=== PATIENT | female | born 1960 | race Caucasian/White ===

== ENCOUNTER 2017-02-06 08:14 | Observation (INO) ==
[2017-02-06] MEDS ORDERED: Ondansetron 4 MG/2 ML VIAL ONE (08:16)
[2017-02-06] MEDS ORDERED: *HR* Propofol 200 MG/20 ML VIAL IVP ONE (08:16)
[2017-02-06] MEDS ORDERED: *HR* Midazolam HCl 2 MG/2 ML VIAL ONE (08:16)
[2017-02-06] MEDS ORDERED: *HR* FentaNYL (PF) 100 MCG/2 ML VIAL ONE (08:16)
[2017-02-06] MEDS ORDERED: Lidocaine -MPF 2% 2 ML VIAL ONE ×2 (08:16→08:18)
[2017-02-06] MEDS ORDERED: Dexamethasone 4 MG/ML VIAL ONE (08:16)
--- NOTE | 2017-02-06 09:22 | Anesthesia Evaluation PreOp ---
Date of Encounter: 02/06/17 Time of Encounter: 09:21 - Past History Planned Operation: excision of volar wrist ganglion cyst on R Cardiac History: HTN, Hyperlipidemia Pulmonary History: Asthma ED TECH History: Other (Bipolar disorder, migraines) Other Medical History: Diabetes Type II (oral medications) Anesthesia History: No Prior Anesthetic Complications Alcohol Use: none Drug use: none Medications and Allergies Albuterol Neb [Proventil Neb] 2.5 mg IH Q4HR 04/16/16 [History] Albuterol Sulfate [Proair Hfa] 2 puff IH Q4HR PRN 04/16/16 [History] Alprazolam [Xanax 1 MG Tablet] 1 mg PO TID 04/16/16 [History] Amlodipine Besylate 10 mg PO DAILY 04/16/16 [History] Aspirin Enteric Coated [Aspirin EC] 81 mg PO DAILY 04/16/16 [History] Atorvastatin Calcium [Lipitor] 20 mg PO DAILY 04/16/16 [History] Beclomethasone Diprop 40mcg [Qvar 40 mcg] 2 puff IH BID 04/16/16 [History] Bupropion HCl [Wellbutrin Xl] 300 mg PO DAILY 04/16/16 [History] Buspirone HCl [Buspar] 10 mg PO TID 04/16/16 [History] Fluticasone Propionate Nasal [Flonase] 1 spray NS DAILY 04/16/16 [History] Hydrochlorothiazide 25 mg PO DAILY 04/16/16 [History] Hydroxyzine HCl 50 mg PO TID 04/16/16 [History] [place] Carbonate 300 mg PO BID 04/16/16 [History] Losartan Potassium [Cozaar] 100 mg PO DAILY 04/16/16 [History] Metformin [Glucophage] 500 mg PO BIDWM 04/16/16 [History] Naproxen [Naprosyn] 500 mg PO BID 04/16/16 [History] Omeprazole [PriLOSEC] 40 mg PO DAILY 04/16/16 [History] Oxybutynin Chloride [Ditropan Xl] 5 mg PO DAILY 04/16/16 [History] Primidone [Mysoline] 50 mg PO HS 04/16/16 [History] Propantheline [place] 15 mg PO BID 04/16/16 [History] Propranolol LA (24 HR) [Inderal LA] 60 mg PO BID 04/16/16 [History] Venlafaxine HCl [Effexor Xr] 75 mg PO DAILY 04/16/16 [History] Allergies Penicillins Allergy (Verified 02/06/17 09:24) Difficulty Breathing Sulfa (Sulfonamide Antibiotics) Allergy (Verified 02/06/17 09:24) Difficulty Breathing - Meds/Allergy Pre-op Review Medications Reviewed: Yes Allergies Reviewed: Yes Beta Blockers on Current Med List: Yes (propranolol) Anesthesia Results - Labs Laboratory Tests 02/03/17 02/03/17 14:24 14:24 WBC 7.3 Hgb 13.4 Hct 42.1 Plt Count 479 H Sodium 140 Potassium 4.0 Chloride 107 Carbon Dioxide 25 BUN 12 Creatinine 1.00 Est GFR ( Amer) > 60 Est GFR (Non-Af Amer) 57 L BUN/Creatinine Ratio 12 Glucose 85 Calculated Osmolality 289 Calcium 10.6 - Imaging EKG: report reviewed, image reviewed (SR; nonspecific t abnormality) Anesthesia Exam Last Vital Signs Temp 97.3 F L 02/06/17 08:49 Pulse 96 02/06/17 08:49 Resp 18 02/06/17 08:49 BP 137/80 02/06/17 08:49 Pulse Ox 96 02/06/17 08:49 Weight: 97 kg NPO (# of Hours): >> 8 hrs - HEENT Pupil (Motor): Pupils equal, EOMI Mallampati: III (short TM distance) Teeth: Normal Oral Opening: Greater than 3 - ED TECH LOC: Oriented ED TECH Motor: Normal RUE, Normal LUE, Normal RLE, Normal LLE, Normal Face ED TECH Sensory: Normal: RUE, LUE, RLE, LLE, Face - Cardiac Rhythm: Regular Murmur: None - Pulmonary Breath Sounds: bilateral Clear Respiratory Effort: Symmetrical Anesthesia Assess/Plan ASA Score: 3 Modified Dawn Scale for Level of Consciousness: Cooperative, oriented, and tranquil Anesthetic Plan: General Monitoring Plan: Standard Monitors Recovery Plan: PACU
[2017-02-06] MEDS ORDERED: Clindamycin 900 MG/50 ML 900 MG/50 ML IV.SOLN IVPB ONE (09:31)
[2017-02-06] MEDS ORDERED: Ringers Solution, Lactated 1,000 ML IVC SCH ×2 (09:45→11:15)
[2017-02-06] MEDS ORDERED: Albuterol 2.5 MG/3 ML NEBULIZER ONE (09:46)
[2017-02-06] MEDS ORDERED: Albuterol 2.5 MG/3 ML NEBULIZER IH ONE (09:49)
[2017-02-06] MEDS ORDERED: Bupivacaine/EPI 1:200k 0.5%PF 10 ML VIAL ONE (09:58)
--- NOTE | 2017-02-06 10:10 | History & Physical Report ---
Date of Encounter: 02/06/17 Time of Encounter: 10:10 24 Hour HP Update - Instructions Instructions: If the History and Physical is less than 30 days old and was completed prior to A.M. admission and or procedure and has NOT been updated on calendar day of procedure please complete this update prior to performing procedure. - Update Patient reports changes in Medical Condition: No Changes in examination, assessment, or condition: No Changes in Medication: No Preop tests/diagnostics Reviewed: Yes Surgery Remains Indicated: Yes Consent for Planned Operative Procedure(s) Verified: Yes
[2017-02-06] MEDS ORDERED: *HR* Morphine 2 MG/ML SYRINGE IVP PRN (11:07)
[2017-02-06] MEDS ORDERED: *HR* Promethazine 25 MG/ML VIAL IVP PRN (11:07)
--- NOTE | 2017-02-06 11:10 | Orthopedic Operative Note ---
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 Peterson. It did recur and is quite bothersome to her. She does desire to be resected. The surgical plan was discussed with the patient. The risks, benefits, alternatives, and potential complications of this procedure were discussed with the patient including injury to veins, arteries, nerves, tendons, ligaments, and bone. Also discussed were the risks of infection, bleeding, pain, blood clots, the possible need for a blood transfusion, the possible need for further procedures, heart attack, stroke, and . I did discuss also the risk of recurrence despite surgical excision. All of this was explained in simple terms , and the patient verbalized understanding and wished to proceed. Consent was given to proceed with surgery. PROCEDURE: The patient was seen in the preoperative holding area where the identify and the consent were confirmed. The right wrist was marked. Final questions were answered. The patient was brought back to the operating room and placed supine on the operating room table. A huddle was performed with the patient and all vital surgical team members confirming patient identity, the correct procedure, and the correct operative site. General anesthesia was administered. The right upper extremity was prepped and draped in the usual sterile fashion. A surgical time out was performed immediately preceding the incision with all personnel in the operating room to confirm patient identity, the correct operative site and extremity, correct radiographic studies, availability of appropriate surgical equipment, and agreement on the planned procedure. A Franky type incision was made over the volar wrist ganglion. Dissection proceeded through the subcutaneous tissue. The radial artery was identified and it was firmly adhered via scar tissue to the ganglion cyst. Using 4.5X loupe magnification the artery was carefully dissected off the ganglion cyst without injury. Dissection then proceeded around the ganglion cyst until it was fully from the surrounding tissues. There was a stalk emanating from the deep fascia and this was electrocauterized and the cyst was handed onto the back table for specimen. The wound was copiously irrigated. The tourniquet was deflated and the radial artery pulsated nicely. Discrete bleeders were electrocauterized. The incision was closed with interrupted nylon stitches. A sterile dressing and volar splint were placed. The instrument, sponge, and needle counts were correct after wound closure. POST OPERATIVE PLAN: Activity: Avoid aggressive activities with right upper extremity. Wound Care: Keep the dressing and splint clean, dry, and intact. Pain Control: [place] Follow Up: 10 days
--- NOTE | 2017-02-06 11:12 | Discharge Summary ---
Outpatient Proc Discharge Plan - Plan Additional Instructions: DISCHARGE INSTRUCTIONS Dr. Mendoza DISCHARGE DIAGNOSIS/PROCEDURE Excision of right volar wrist ganglion PAIN AND SWELLING: The goal of pain medication is to reduce your pain and make you more comfortable. Pain medication may not completely relieve all discomfort. Control of swelling is an important part of pain control. To control swelling and pain: 1. Use a pillow to elevate the hand 10 to 14 inches above the heart level. 2. If your splint is positioned so that one or more of your fingers is free, then we encourage gentle movement of those fingers. If the splint blocks your motion, then we ask that you avoid motion of these fingers or hand. If the splint does not include the elbow, then we encourage you to bend and straighten your elbow 4 to 5 times per day to prevent stiffness. 3. Use ice packs over the affected area (on the soft side of the dressings is preferred - if there is one) for 10 minute intervals every hour while the hand is elevated. Be careful, however, to keep the dressing dry! 4. If you were given a sling, then wear the sling on when walking around for long periods of time. Otherwise, elevated as directed above. Continued use of the sling does not provide proper elevation of the extremity to prevent swelling. 5. The anesthesiologist may have given you a nerve block (an injection near your neck or shoulder) to numb your hand and arm. This is to help control your pain. Therefore, it is normal to experience some numbness and tingling in your arm and fingers up to approximately 18 hours after surgery. Your surgeon may have given a nerve block directly at the site of surgery which may also cause some numbness and tingling to the affected area. ACTIVITY: Avoid aggressive activities with the right upper extremity. WOUND CARE: Keep the wound clean, dry, and covered. The purpose of the dressing is to keep the surgical site protected and to promote healing. If you have a splint or a cast, it is designed to also help protect the surgical site. You may take a shower or bath with your dressing, splint, or cast in place, but you must keep it dry. One common way to do this is to place a bag over the area and seal with tape. If your dressing, splint, or cast becomes soaked, then phone our office as soon as possible. Unless otherwise instructed, do not remove your dressing or splint. There may be some bloody spotting on the dressing initially , and this is normal. Excessive bleeding that soaks the dressing must be reported to us. DRIVING: Do not drive while taking narcotic pain medications. DIET: Begin with clear liquids, and then increase your diet as you feel comfortable. MEDICATIONS: Pain: [place] Your prescribed pain medication contains Tylenol. You must be careful not to exceed 4,000 mg (4 g) of Tylenol (or generic equivalent), from all sources, within a single 24-hour period. Gradually wean to Tylenol (or generic equivalent) for pain. Over the counter ibuprofen can be taken as directed in addition to your prescribed pain medication unless otherwise stated by your doctor. DO NOT TAKE IBUPROFEN IF YOU HAVE A HISTORY OF STOMACH ULCERS OR ARE TAKING BLOOD THINNERS LIKE COUMADIN OR PLAVIX. FOLLOW-UP Follow-up with Dr. Mendoza at the office 10 days from the surgery date for a post operative evaluation. Call the office at [phone] to schedule or confirm your appointment. WHEN TO CALL THE DOCTOR OR WHEN TO SEEK CARE BEFORE YOUR APPOINTMENT 1. Excess swelling or increased numbness not made better by elevating the hand and moving the fingers. 2. Uncontrolled pain. 3. A color change in your hand or fingers. 4. Worsening redness or drainage. 5. Fevers over 100.5 degrees F or 38.1 degrees C. 6. Any symptoms that bring concern to you. Prescriptions: HYDROcodone/Acet 7.5/325 mg [[place] 7.5-325 mg] 1 tab PO Q6H PRN #30 tablet PRN Reason: Pain Home Medications: Albuterol Neb [Proventil Neb] 2.5 mg IH Q4HR 04/16/16 [History] Albuterol Sulfate [Proair Hfa] 2 puff IH Q4HR PRN 04/16/16 [History] Alprazolam [Xanax 1 MG Tablet] 1 mg PO TID 04/16/16 [History] Amlodipine Besylate 10 mg PO DAILY 04/16/16 [History] Aspirin Enteric Coated [Aspirin EC] 81 mg PO DAILY 04/16/16 [History] Atorvastatin Calcium [Lipitor] 20 mg PO DAILY 04/16/16 [History] Beclomethasone Diprop 40mcg [QVAR 40 mcg] 2 puff IH BID 04/16/16 [History] Bupropion HCl [Wellbutrin Xl] 300 mg PO DAILY 04/16/16 [History] Buspirone HCl [Buspar] 10 mg PO TID 04/16/16 [History] Fluticasone Propionate Nasal [Flonase] 1 spray NS DAILY 04/16/16 [History] Hydrochlorothiazide 25 mg PO DAILY 04/16/16 [History] Hydroxyzine HCl 50 mg PO TID 04/16/16 [History] [place] Carbonate 300 mg PO BID 04/16/16 [History] Losartan Potassium [Cozaar] 100 mg PO DAILY 04/16/16 [History] Metformin [Glucophage] 500 mg PO BIDWM 04/16/16 [History] Naproxen [Naprosyn] 500 mg PO BID 04/16/16 [History] Omeprazole [PriLOSEC] 40 mg PO DAILY 04/16/16 [History] Oxybutynin Chloride [Ditropan Xl] 2.5 mg PO DAILY 04/16/16 [History] Venlafaxine HCl [Effexor Xr] 75 mg PO DAILY 04/16/16 [History] Fenofibrate [Lofibra] 160 mg PO DAILY 02/06/17 [History] HYDROcodone/Acet 7.5/325 mg [[place] 7.5-325 mg] 1 tab PO Q6H PRN #30 tablet 02/06 [Rx]
[2017-02-06] MEDS ORDERED: Ketorolac 30 MG/ML VIAL IVP ONE (11:50)
[2017-02-06] MEDS ORDERED: *HR* HYDROcodone/Acet 5/325 mg TABLET PO ONE (11:51)
[2017-02-06] MEDS ORDERED: Ringers Solution, Lactated 500 ML IVC ONE ×2 (13:19→13:30)
--- NOTE | 2017-02-06 14:09 | Anesthesia Evaluation Post Op ---
Date of Encounter: 02/06/17 Time of Encounter: 14:07 - Vital Signs Vital Signs: Last Vital Signs Temp 97.8 F 02/06/17 11:35 Pulse 82 02/06/17 13:20 Resp 16 02/06/17 13:20 BP 101/44 02/06/17 13:20 Pulse Ox 97 02/06/17 13:20 - Lungs Lungs: Clear Ascult./Percussion - Airway Airway: Non-obstructed - Cardiovascular Regular Rate - Mental Status Mental Status: Alert & Oriented, Answers Appropriately - Pain Pain Scale: 2 - Nausea Vomiting Nausea Vomiting: Not Present - Hydration Hydration: Tolerates oral liquids Notes: 02/06/17 14:07 Patient continues to feel light-headed and weak. She does not feel as though she will be able to handle discharge to home. Her blood pressure has been low- normal, although it has improved with IV fluid boluses. She is Bipolar and was taking lithium, wellbutrin, buspar, etc which can impact General Anesthetic recovery time (causing her to require admission to observation for delayed recovery). Her lithium level was not elevated upon check in November 2016, but I 'm not sure if her dose remained the same since November 2016. Anyways, I feel strongly that should would benefit from a day of observation. I discussed this with Dr. Mendoza, and he has agreed to admit her for observation. 02/06/17 14:09 - Discharge PostOp Status: Transfer Patient to floor
[2017-02-06] MEDS ORDERED: Naloxone 0.4 MG/ML INJ IVP PRN (15:12)
[2017-02-06] MEDS ORDERED: Ondansetron 4 MG/2 ML VIAL IVP PRN (15:12)
[2017-02-06] MEDS ORDERED: Dextrose Gel 15 GM PO PRN ×2 (16:43)
[2017-02-06] MEDS ORDERED: D5% in Water 1,000 ML IVC PRN (16:43)
[2017-02-06] MEDS ORDERED: *HR* Dextrose 50 % in Water (Syg) 50 ML SYRINGE IVP PRN (16:43)
--- NOTE | 2017-02-06 16:46 | Internal Medicine Consult Note ---
Date of Encounter: 02/06/17 Time of Encounter: 16:44 - Assessment and Plan (1) Hypotension Current Visit: Yes Status: Acute Assessment and plan: Borderline hypotension with lightheadedness after her procedure. Likely related to the numerous antihypertensive and psych medications she is on. BP improved with fluid resuscitation. - Hold antihypertensives tonight - Monitor BP - Patient may need decreased home antihypertensive doses based on her history of recent episode of hypotension at home Qualifiers: Hypotension type: unspecified hypotension type Qualified Code(s): I95.9 - Hypotension, unspecified (2) Bipolar disorder Current Visit: Yes Status: Acute Assessment and plan: Stable. Continue home meds. Esto level low. Qualifiers: Active/Remission status: remission status unspecified Qualified Code(s): F31.9 - Bipolar disorder, unspecified (3) Diabetes Current Visit: Yes Status: Acute Assessment and plan: Will hold metformin while admitted - SSI Qualifiers: Diabetes mellitus type: type 2 Diabetes mellitus complication status: without complication Diabetes mellitus group home insulin use: without group home use Qualified Code(s): E11.9 - Type 2 diabetes mellitus without complications Internal Medicine - CN: HPI - Data of Consult Patient: new to practice Requesting Physician: Eric Mendoza MD - Consult Narrative Reason for consult: Hypotension s/p general anesthesia History of present illness: Ms. Martínez is a 56 year old female with history of HTN, bipolar disorder and diabetes who underwent general anesthesia for ganglion cyst removal this afternoon. She reportedly had difficulty with hypotension after the procedure and was admitted for observation overnight. Internal medicine was consulted for assistance with medical management of this patient. She is evaluated by me on the med/surg floor and states that she is feeling better than she did in the PACU. Her BP has improved to 109/58. She states that she does still feel lightheaded and has a mild headache. Her right arm hurts at the site of surgery. She states that three weeks ago she had one day where she was very lightheaded and her blood pressure was very low on her home BP cuff. She is unsure how low it actually was, but she stayed in bed all day and the next day she felt better. She is on several blood pressure medications and reports compliance with all of them. She took them all this morning prior to surgery. She denies chest pain or shortness of breath. Denies abdominal pain. BG was 150 in PACU. Past Med Surg Social Fam HX - Past Medical History Medical history: asthma, diabetes, GERD, hyperlipidemia, hypertension Psychiatric history: anxiety, bipolar, depression, panic disorder - Past Surgical History Surgical History: cholecystectomy, hysterectomy - Social History Smoking Status: Never smoker Smokeless Tobacco Status: No Alcohol use: none Drug use: none Additional social history: Lives at home alone - Family History Father Hx Family Cardiac Disorders: Yes (HTN) All systems: reviewed and no additional remarkable complaints except as stated Internal Medicine - CN: Meds Albuterol Neb [Proventil Neb] 2.5 mg IH Q4HR 04/16/16 [History] Albuterol Sulfate [Proair Hfa] 2 puff IH Q4HR PRN 04/16/16 [History] Alprazolam [Xanax 1 MG Tablet] 1 mg PO TID 04/16/16 [History] Amlodipine Besylate 10 mg PO DAILY 04/16/16 [History] Aspirin Enteric Coated [Aspirin EC] 81 mg PO DAILY 04/16/16 [History] Atorvastatin Calcium [Lipitor] 20 mg PO DAILY 04/16/16 [History] Beclomethasone Diprop 40mcg [QVAR 40 mcg] 2 puff IH BID 04/16/16 [History] Bupropion HCl [Wellbutrin Xl] 300 mg PO DAILY 04/16/16 [History] Buspirone HCl [Buspar] 10 mg PO TID 04/16/16 [History] Fluticasone Propionate Nasal [Flonase] 1 spray NS DAILY 04/16/16 [History] Hydrochlorothiazide 25 mg PO DAILY 04/16/16 [History] Hydroxyzine HCl 50 mg PO TID 04/16/16 [History] [place] Carbonate 300 mg PO BID 04/16/16 [History] Losartan Potassium [Cozaar] 100 mg PO DAILY 04/16/16 [History] Metformin [Glucophage] 500 mg PO BIDWM 04/16/16 [History] Naproxen [Naprosyn] 500 mg PO BID 04/16/16 [History] Omeprazole [PriLOSEC] 40 mg PO DAILY 04/16/16 [History] Oxybutynin Chloride [Ditropan Xl] 2.5 mg PO DAILY 04/16/16 [History] Venlafaxine HCl [Effexor Xr] 75 mg PO DAILY 04/16/16 [History] Fenofibrate [Lofibra] 160 mg PO DAILY 02/06/17 [History] HYDROcodone/Acet 7.5/325 mg [[place] 7.5-325 mg] 1 tab PO Q6H PRN #30 tablet 02/06 [Rx] Allergies Penicillins Allergy (Verified 02/06/17 09:24) Difficulty Breathing Sulfa (Sulfonamide Antibiotics) Allergy (Verified 02/06/17 09:24) Difficulty Breathing Internal Medicine - CN: Exam - Constitutional Vitals: Temp Pulse Resp BP Pulse Ox 97.8 F 90 16 109/58 95 02/06/17 15:46 02/06/17 15:46 02/06/17 15:46 02/06/17 15:46 02/06/17 15:46 General appearance IM: Present: A&O X 3 Exam: Patient in no acute distress, resting comfortably in bed - Head Head exam: Present: atraumatic - Eye Eye exam: Present: EOMI, sclera anicteric - ENT ENT exam: Present: mucous membranes moist - Neck Neck exam general surgery: Present: supple - Respiratory Respiratory exam: Present: CTAB - Cardiovascular Cardiovascular exam IM: Present: RRR. Absent: diastolic murmur, gallop, rubs, systolic murmur - GI/Abdominal GI/Abdominal exam IM: Present: normal bowel sounds, soft. Absent: distended, tenderness - Extremities Exam Extremities exam IM: Absent: pedal edema - Neurological Exam Neurological exam: Present: no focal deficits - Psychiatric Psychiatric exam: Present: normal affect, normal mood - Skin Skin exam IM: Absent: rash Internal Medicine - CN: Reslt - Labs CBC & Chem 7: 02/06/17 17:00 02/06/17 17:00 Consult Discharge Plan - Plan Additional Instructions: DISCHARGE INSTRUCTIONS Dr. Mendoza DISCHARGE DIAGNOSIS/PROCEDURE Excision of right volar wrist ganglion PAIN AND SWELLING: The goal of pain medication is to reduce your pain and make you more comfortable. Pain medication may not completely relieve all discomfort. Control of swelling is an important part of pain control. To control swelling and pain: 1. Use a pillow to elevate the hand 10 to 14 inches above the heart level. 2. If your splint is positioned so that one or more of your fingers is free, then we encourage gentle movement of those fingers. If the splint blocks your motion, then we ask that you avoid motion of these fingers or hand. If the splint does not include the elbow, then we encourage you to bend and straighten your elbow 4 to 5 times per day to prevent stiffness. 3. Use ice packs over the affected area (on the soft side of the dressings is preferred - if there is one) for 10 minute intervals every hour while the hand is elevated. Be careful, however, to keep the dressing dry! 4. If you were given a sling, then wear the sling on when walking around for long periods of time. Otherwise, elevated as directed above. Continued use of the sling does not provide proper elevation of the extremity to prevent swelling. 5. The anesthesiologist may have given you a nerve block (an injection near your neck or shoulder) to numb your hand and arm. This is to help control your pain. Therefore, it is normal to experience some numbness and tingling in your arm and fingers up to approximately 18 hours after surgery. Your surgeon may have given a nerve block directly at the site of surgery which may also cause some numbness and tingling to the affected area. ACTIVITY: Avoid aggressive activities with the right upper extremity. WOUND CARE: Keep the wound clean, dry, and covered. The purpose of the dressing is to keep the surgical site protected and to promote healing. If you have a splint or a cast, it is designed to also help protect the surgical site. You may take a shower or bath with your dressing, splint, or cast in place, but you must keep it dry. One common way to do this is to place a bag over the area and seal with tape. If your dressing, splint, or cast becomes soaked, then phone our office as soon as possible. Unless otherwise instructed, do not remove your dressing or splint. There may be some bloody spotting on the dressing initially , and this is normal. Excessive bleeding that soaks the dressing must be reported to us. DRIVING: Do not drive while taking narcotic pain medications. DIET: Begin with clear liquids, and then increase your diet as you feel comfortable. MEDICATIONS: Pain: [place] Your prescribed pain medication contains Tylenol. You must be careful not to exceed 4,000 mg (4 g) of Tylenol (or generic equivalent), from all sources, within a single 24-hour period. Gradually wean to Tylenol (or generic equivalent) for pain. Over the counter ibuprofen can be taken as directed in addition to your prescribed pain medication unless otherwise stated by your doctor. DO NOT TAKE IBUPROFEN IF YOU HAVE A HISTORY OF STOMACH ULCERS OR ARE TAKING BLOOD THINNERS LIKE COUMADIN OR PLAVIX. FOLLOW-UP Follow-up with Dr. Mendoza at the office 10 days from the surgery date for a post operative evaluation. Call the office at [phone] to schedule or confirm your appointment. WHEN TO CALL THE DOCTOR OR WHEN TO SEEK CARE BEFORE YOUR APPOINTMENT 1. Excess swelling or increased numbness not made better by elevating the hand and moving the fingers. 2. Uncontrolled pain. 3. A color change in your hand or fingers. 4. Worsening redness or drainage. 5. Fevers over 100.5 degrees F or 38.1 degrees C. 6. Any symptoms that bring concern to you. Home Medication List * You have been given a list of your current medications. If you have changes in your medications, update your list. * Provide a list of current medications to your primary care physician. * Carry a copy of your current medications with you in case of an emergency. Referrals: Sandi Erickson, [employer] [Primary Care Provider] -
[2017-02-06 17:08] LABS: Basophils % 0.2 %; Eosinophils % 0.7 %; Hematocrit 37.2 % (35.3-44.9); Hemoglobin 11.7 g/dL (11.5-15.4); Immature Granulocytes % 0.3 % (0-4); Lymphocytes % 16.7 %; Mean Corpuscular HGB Conc 31.5 g/dL (31.6-35.5); Mean Corpuscular Hemoglobin 28.5 pg (28.0-33.3); Mean Corpuscular Volume 90.7 fL (83.0-100.0); Mean Platelet Volume 10.2 fL (9.4-12.4); Monocytes # 0.1 K/mcL (0.0-1.3); Monocytes % 2.1 %; Neutrophils # 4.6 K/mcL (1.6-8.9); Platelet Count 366 K/mcL (140-400); Red Cell Distribution Width 13.7 % (11.5-14.5)
[2017-02-06 17:18] LABS: Calcium 9.7 mg/dL (8.6-10.8); Potassium 4.1 mEq/L (3.5-4.5)
[2017-02-06] MEDS: *HR* HYDROcodone/Acet 7.5/325 mg TABLET PO PRN ×2 (17:39→23:49)
[2017-02-06] MEDS: Beclomethasone 40mcg MDI IH SCH (20:34)
[2017-02-06] MEDS: Albuterol 2.5 MG/3 ML NEBULIZER IH SCH ×2 (20:34→23:20)
--- NOTE | 2017-02-06 20:52 | Orthopedics Progress Note ---
Date of Encounter: 02/06/17 Time of Encounter: 16:00 - Assessment and Plan (1) Hypotension Current Visit: Yes Status: Acute Late entry of note; Seen earlier this afternoon in the PACU S: Patient seen in the PACU; Complaints of simply not feeling well; Pain controlled to the right wrist. O: Afebrile; VSS, though had low BPs earlier Right hand in splint Motors digits well, and they are sensate and well perfused. A: Post op day zero after right volar ganglion excision P: Will admit to my service for overnight observation. Consult hospitalist to assist in medical management. Home tomorrow if feeling better. Qualifiers: Hypotension type: unspecified hypotension type Qualified Code(s): I95.9 - Hypotension, unspecified Objective Vital signs: Vital Signs Temp Pulse Resp BP Pulse Ox 02/06/17 19:46 98.9 F 93 16 138/74 95 02/06/17 15:46 97.8 F 90 16 109/58 95 02/06/17 14:40 88 16 110/45 97 02/06/17 14:20 85 16 106/45 93 02/06/17 13:50 85 16 107/59 95 02/06/17 13:20 82 16 101/44 97 02/06/17 13:05 82 16 102/46 98 02/06/17 12:35 84 16 111/50 98 02/06/17 12:05 87 16 99/55 96 02/06/17 11:35 97.8 F 94 16 106/65 95 02/06/17 11:31 98 F 92 18 108/55 94 02/06/17 11:21 93 18 113/61 94 02/06/17 11:11 98.2 F 101 18 118/64 94 02/06/17 09:50 18 137/80 96 02/06/17 09:34 97.3 F L 96 18 137/80 02/06/17 08:49 97.3 F L 96 18 137/80 96 Intake and Output 02/06/17 02/06/17 02/06/17 07:59 15:59 23:59 Intake Total 2049 1265 / 1265 Output Total 2 / 2 0 / 0 Balance 2047 1265 / 1265 Intake: IV Fluids 2049 700 / 700 Lactated Ringers 1,000 ML 1500 / 1500 700 / 700 @ 25 mls/hr IVC .Q24H ZANDER Rx#:[id number] Lactated Ringers 500 ML @ 500 / 500 1000 mls/hr IVC .Q30M ONE Rx#:[id number] Cleocin 900 MG/50 ML 900 50 / 50 mg In 50 ml @ 100 mls/hr IVPB PREOP ONE Rx#: [id number] Oral 0 / 0 565 / 565 Output: Urine 0 / 0 Estimated Blood Loss 2 / 2 Other: Meal Dinner Percent of Meal Consumed 100% # Voids 1 Weight 97.069 kg Blood Glucose* 148 108 Patient Weight 02/06/17 23:59 Weight 97.069 kg - Labs CBC & BMP: 02/06/17 17:00 02/06/17 17:00 Labs: Abnormal lab results MCHC 31.5 g/dL (31.6-35.5) L 02/06/17 17:00 Creatinine 1.15 mg/dL (0.57-1.11) H 02/06/17 17:00 Est GFR ( Amer) 59 (> 60) L 02/06/17 17:00 Est GFR (Non-Af Amer) 49 (> 60) L 02/06/17 17:00 Glucose 143 mg/dL (70-99) H 02/06/17 17:00 POC Glucose 108 (58-89) H 02/06/17 19:52 [place] 0.4 mEq/L (0.6-1.2) L 02/06/17 17:00 Consult Discharge Plan - Plan Additional Instructions: DISCHARGE INSTRUCTIONS Dr. Mendoza DISCHARGE DIAGNOSIS/PROCEDURE Excision of right volar wrist ganglion PAIN AND SWELLING: The goal of pain medication is to reduce your pain and make you more comfortable. Pain medication may not completely relieve all discomfort. Control of swelling is an important part of pain control. To control swelling and pain: 1. Use a pillow to elevate the hand 10 to 14 inches above the heart level. 2. If your splint is positioned so that one or more of your fingers is free, then we encourage gentle movement of those fingers. If the splint blocks your motion, then we ask that you avoid motion of these fingers or hand. If the splint does not include the elbow, then we encourage you to bend and straighten your elbow 4 to 5 times per day to prevent stiffness. 3. Use ice packs over the affected area (on the soft side of the dressings is preferred - if there is one) for 10 minute intervals every hour while the hand is elevated. Be careful, however, to keep the dressing dry! 4. If you were given a sling, then wear the sling on when walking around for long periods of time. Otherwise, elevated as directed above. Continued use of the sling does not provide proper elevation of the extremity to prevent swelling. 5. The anesthesiologist may have given you a nerve block (an injection near your neck or shoulder) to numb your hand and arm. This is to help control your pain. Therefore, it is normal to experience some numbness and tingling in your arm and fingers up to approximately 18 hours after surgery. Your surgeon may have given a nerve block directly at the site of surgery which may also cause some numbness and tingling to the affected area. ACTIVITY: Avoid aggressive activities with the right upper extremity. WOUND CARE: Keep the wound clean, dry, and covered. The purpose of the dressing is to keep the surgical site protected and to promote healing. If you have a splint or a cast, it is designed to also help protect the surgical site. You may take a shower or bath with your dressing, splint, or cast in place, but you must keep it dry. One common way to do this is to place a bag over the area and seal with tape. If your dressing, splint, or cast becomes soaked, then phone our office as soon as possible. Unless otherwise instructed, do not remove your dressing or splint. There may be some bloody spotting on the dressing initially , and this is normal. Excessive bleeding that soaks the dressing must be reported to us. DRIVING: Do not drive while taking narcotic pain medications. DIET: Begin with clear liquids, and then increase your diet as you feel comfortable. MEDICATIONS: Pain: [place] Your prescribed pain medication contains Tylenol. You must be careful not to exceed 4,000 mg (4 g) of Tylenol (or generic equivalent), from all sources, within a single 24-hour period. Gradually wean to Tylenol (or generic equivalent) for pain. Over the counter ibuprofen can be taken as directed in addition to your prescribed pain medication unless otherwise stated by your doctor. DO NOT TAKE IBUPROFEN IF YOU HAVE A HISTORY OF STOMACH ULCERS OR ARE TAKING BLOOD THINNERS LIKE COUMADIN OR PLAVIX. FOLLOW-UP Follow-up with Dr. Mendoza at the office 10 days from the surgery date for a post operative evaluation. Call the office at [phone] to schedule or confirm your appointment. WHEN TO CALL THE DOCTOR OR WHEN TO SEEK CARE BEFORE YOUR APPOINTMENT 1. Excess swelling or increased numbness not made better by elevating the hand and moving the fingers. 2. Uncontrolled pain. 3. A color change in your hand or fingers. 4. Worsening redness or drainage. 5. Fevers over 100.5 degrees F or 38.1 degrees C. 6. Any symptoms that bring concern to you. Home Medication List * You have been given a list of your current medications. If you have changes in your medications, update your list. * Provide a list of current medications to your primary care physician. * Carry a copy of your current medications with you in case of an emergency. Referrals: Sandi Erickson CNP [Primary Care Provider] - Eric Mendoza MD [Partnered Physician] - 02/16/17 10:30 am
--- NOTE | 2017-02-06 21:55 | Discharge Summary ---
Outpatient Proc Discharge Plan - Plan Additional Instructions: DISCHARGE INSTRUCTIONS Dr. Mendoza DISCHARGE DIAGNOSIS/PROCEDURE Excision of right volar wrist ganglion PAIN AND SWELLING: The goal of pain medication is to reduce your pain and make you more comfortable. Pain medication may not completely relieve all discomfort. Control of swelling is an important part of pain control. To control swelling and pain: 1. Use a pillow to elevate the hand 10 to 14 inches above the heart level. 2. If your splint is positioned so that one or more of your fingers is free, then we encourage gentle movement of those fingers. If the splint blocks your motion, then we ask that you avoid motion of these fingers or hand. If the splint does not include the elbow, then we encourage you to bend and straighten your elbow 4 to 5 times per day to prevent stiffness. 3. Use ice packs over the affected area (on the soft side of the dressings is preferred - if there is one) for 10 minute intervals every hour while the hand is elevated. Be careful, however, to keep the dressing dry! 4. If you were given a sling, then wear the sling on when walking around for long periods of time. Otherwise, elevated as directed above. Continued use of the sling does not provide proper elevation of the extremity to prevent swelling. 5. The anesthesiologist may have given you a nerve block (an injection near your neck or shoulder) to numb your hand and arm. This is to help control your pain. Therefore, it is normal to experience some numbness and tingling in your arm and fingers up to approximately 18 hours after surgery. Your surgeon may have given a nerve block directly at the site of surgery which may also cause some numbness and tingling to the affected area. ACTIVITY: Avoid aggressive activities with the right upper extremity. WOUND CARE: Keep the wound clean, dry, and covered. The purpose of the dressing is to keep the surgical site protected and to promote healing. If you have a splint or a cast, it is designed to also help protect the surgical site. You may take a shower or bath with your dressing, splint, or cast in place, but you must keep it dry. One common way to do this is to place a bag over the area and seal with tape. If your dressing, splint, or cast becomes soaked, then phone our office as soon as possible. Unless otherwise instructed, do not remove your dressing or splint. There may be some bloody spotting on the dressing initially , and this is normal. Excessive bleeding that soaks the dressing must be reported to us. DRIVING: Do not drive while taking narcotic pain medications. DIET: Begin with clear liquids, and then increase your diet as you feel comfortable. MEDICATIONS: Pain: [place] Your prescribed pain medication contains Tylenol. You must be careful not to exceed 4,000 mg (4 g) of Tylenol (or generic equivalent), from all sources, within a single 24-hour period. Gradually wean to Tylenol (or generic equivalent) for pain. Over the counter ibuprofen can be taken as directed in addition to your prescribed pain medication unless otherwise stated by your doctor. DO NOT TAKE IBUPROFEN IF YOU HAVE A HISTORY OF STOMACH ULCERS OR ARE TAKING BLOOD THINNERS LIKE COUMADIN OR PLAVIX. FOLLOW-UP Follow-up with Dr. Mendoza at the office 10 days from the surgery date for a post operative evaluation. Call the office at [phone] to schedule or confirm your appointment. WHEN TO CALL THE DOCTOR OR WHEN TO SEEK CARE BEFORE YOUR APPOINTMENT 1. Excess swelling or increased numbness not made better by elevating the hand and moving the fingers. 2. Uncontrolled pain. 3. A color change in your hand or fingers. 4. Worsening redness or drainage. 5. Fevers over 100.5 degrees F or 38.1 degrees C. 6. Any symptoms that bring concern to you. Home Medication List * You have been given a list of your current medications. If you have changes in your medications, update your list. * Provide a list of current medications to your primary care physician. * Carry a copy of your current medications with you in case of an emergency. Prescriptions: HYDROcodone/Acet 7.5/325 mg [[place] 7.5-325 mg] 1 tab PO Q6HR PRN #30 tablet PRN Reason: Pain Home Medications: Albuterol Neb [Proventil Neb] 2.5 mg IH Q4HR 04/16/16 [History] Albuterol Sulfate [Proair Hfa] 2 puff IH Q4HR PRN 04/16/16 [History] Alprazolam [Xanax 1 MG Tablet] 1 mg PO TID 04/16/16 [History] Amlodipine Besylate 10 mg PO DAILY 04/16/16 [History] Aspirin Enteric Coated [Aspirin EC] 81 mg PO DAILY 04/16/16 [History] Atorvastatin Calcium [Lipitor] 20 mg PO DAILY 04/16/16 [History] Beclomethasone Diprop 40mcg [QVAR 40 mcg] 2 puff IH BID 04/16/16 [History] Bupropion HCl [Wellbutrin Xl] 300 mg PO DAILY 04/16/16 [History] Buspirone HCl [Buspar] 10 mg PO TID 04/16/16 [History] Fluticasone Propionate Nasal [Flonase] 1 spray NS DAILY 04/16/16 [History] Hydrochlorothiazide 25 mg PO DAILY 04/16/16 [History] Hydroxyzine HCl 50 mg PO TID 04/16/16 [History] Reeder Carbonate 300 mg PO BID 04/16/16 [History] Losartan Potassium [Cozaar] 100 mg PO DAILY 04/16/16 [History] Metformin [Glucophage] 500 mg PO BIDWM 04/16/16 [History] Naproxen [Naprosyn] 500 mg PO BID 04/16/16 [History] Omeprazole [PriLOSEC] 40 mg PO DAILY 04/16/16 [History] Oxybutynin Chloride [Ditropan Xl] 2.5 mg PO DAILY 04/16/16 [History] Venlafaxine HCl [Effexor Xr] 75 mg PO DAILY 04/16/16 [History] Fenofibrate [Lofibra] 160 mg PO DAILY 02/06/17 [History] HYDROcodone/Acet 7.5/325 mg [[place] 7.5-325 mg] 1 tab PO Q6H PRN #30 tablet 02/06 [Rx] HYDROcodone/Acet 7.5/325 mg [[place] 7.5-325 mg] 1 tab PO Q6HR PRN #30 tablet [Rx]
[2017-02-06] MEDS: ALPRAZolam 1 MG TABLET PO SCH (22:27)
[2017-02-06] MEDS: Lithium Carbonate 300 MG CAPSULE PO SCH (22:28)
[2017-02-07] MEDS: Albuterol 2.5 MG/3 ML NEBULIZER IH SCH ×2 (04:38→08:18)
[2017-02-07 07:08] VITALS: BP 123/74
[2017-02-07] MEDS ORDERED: Insulin LISPRO 300 UNITS/3 ML VIAL SQ SCH (07:30)
[2017-02-07] MEDS: Beclomethasone 40mcg MDI IH SCH (08:19)
[2017-02-07] MEDS ORDERED: BuPROPion XL (24 HR) 150 MG TABLET PO SCH (09:00)
[2017-02-07] MEDS ORDERED: Venlafaxine XR (24 HR) 75 MG CAP.ER.24H PO SCH (09:00)
[2017-02-07] MEDS ORDERED: Fenofibrate 54 MG TABLET PO SCH (09:00)
[2017-02-07] MEDS ORDERED: Fluticasone Propionate Nasal 50 MCG/SPRAY BOTTLE NS SCH (09:00)
[2017-02-07] MEDS: ALPRAZolam 1 MG TABLET PO SCH (09:07)
[2017-02-07] MEDS: *HR* HYDROcodone/Acet 7.5/325 mg TABLET PO PRN (09:08)
[2017-02-07] MEDS: Lithium Carbonate 300 MG CAPSULE PO SCH (09:08)
== END 2017-02-07 11:25 | disposition home or self-care (01) ==
LOC: 3ANU 08:14 → SAMDAYPAV 08:14 → 3ANU 14:29 → SAMDAYPAV 15:10 → 3ANU 16:08
PROVIDERS: ADMIT Orthopaedic Surgery Hand Surgery; ATTEND Orthopaedic Surgery Hand Surgery

== ENCOUNTER 2022-09-01 09:38 | Inpatient (IN) ==
[~2022-09-01 09:38] MED LIST: Acetaminophen IV 1,000 MG/100 ML BAG IVPB ONE
[2022-09-01] MEDS ORDERED: *HR* FentaNYL (PF) 100 MCG/2 ML VIAL ONE ×2 (10:06→16:28)
[2022-09-01] MEDS ORDERED: *HR* Midazolam HCl 2 MG/2 ML VIAL ONE (10:06)
[2022-09-01] MEDS ORDERED: *HR* Propofol 200 MG/20 ML VIAL IVP ONE (10:07)
[2022-09-01] MEDS ORDERED: CeFAZolin Syr 2,000MG/20 ML 2,000 MG/20 ML SYRINGE IVPB ONE (10:14)
[2022-09-01] MEDS ORDERED: Scopolamine Patch 1.5 MG PATCH.TD72 TD ONE (10:25)
[2022-09-01] MEDS ORDERED: Albuterol 2.5 MG/3 ML NEBULIZER IH ONE (10:26)
[2022-09-01] MEDS ORDERED: Ondansetron 4 MG/2 ML VIAL ONE (10:38)
[2022-09-01] MEDS ORDERED: Lidocaine -MPF 2% 2 ML VIAL ONE (10:38)
[2022-09-01] MEDS ORDERED: Lidocaine HCL 4 ML Topical Solution (Laryng-O-Jet Kit Sterile Pak) TP ONE (10:38)
[2022-09-01] MEDS ORDERED: *HR* Rocuronium Bromide 50 MG/5 ML VIAL ONE ×2 (10:38→16:19)
[2022-09-01] MEDS ORDERED: Ondansetron 4 MG/2 ML VIAL IVP PRN ×3 (10:48→21:49)
[2022-09-01] MEDS ORDERED: Albuterol 2.5 MG/3 ML NEBULIZER IH PRN ×2 (10:48→19:19)
[2022-09-01] MEDS ORDERED: *HR* HYDROmorphone PF 0.5 MG/0.5 ML SYRINGE IVP PRN ×2 (10:48→19:19)
[2022-09-01] MEDS ORDERED: *HR* HYDROMORPHONE 2 MG/ML VIAL ONE (19:02)
[2022-09-01] MEDS ORDERED: *HR* FentaNYL (PF) 100 MCG/2 ML VIAL IVP PRN (19:19)
[2022-09-01] MEDS ORDERED: Dextrose Gel 15 GM/37.5 ML TUBE PO PRN ×2 (21:49)
[2022-09-01] MEDS ORDERED: D5% in Water 1,000 ML IVC PRN (21:49)
[2022-09-01] MEDS ORDERED: *HR* Dextrose 50 % in Water (Syg) 50 ML SYRINGE IVP PRN (21:49)
[2022-09-01] MEDS ORDERED: Naloxone 0.4 MG/ML INJ IVP PRN (21:49)
[2022-09-01] MEDS: 0.9 % Sodium Chloride 1,000 ML IVC SCH (22:49)
[2022-09-01] MEDS: Insulin LISPRO 300 UNITS/3 ML VIAL SUBQ SCH (22:49)
[2022-09-01] MEDS: Gabapentin 300 MG CAPSULE PO SCH (22:50)
[2022-09-01] MEDS: Topiramate 25 MG TABLET PO SCH (22:50)
[2022-09-02] MEDS: Ketorolac 30 MG/ML VIAL IVP SCH ×5 (00:09→23:15)
[2022-09-02] MEDS: Acetaminophen IV 1,000 MG/100 ML BAG IVPB SCH ×5 (00:10→23:14)
[2022-09-02] MEDS: CeFAZolin 2 GM/120 ML BAG IVPB SCH ×4 (00:10→23:14)
[2022-09-02 05:06] LABS: Basophils % 0.1 %; Hematocrit 34.8 % (35.3-44.9); Immature Granulocytes % 0.2 % (0-4); Lymphocytes # 1.3 K/mcL (0.6-4.6); Lymphocytes % 14.6 %; Mean Corpuscular HGB Conc 30.5 g/dL (31.6-35.5); Mean Corpuscular Hemoglobin 29.3 pg (28.0-33.3); Mean Corpuscular Volume 96.1 fL (83.0-100.0); Mean Platelet Volume 10.8 fL (9.4-12.4); Monocytes # 0.8 K/mcL (0.0-1.3); Monocytes % 8.8 %; Neutrophils # 6.6 K/mcL (1.6-8.9); Platelet Count 367 K/mcL (140-400); Red Blood Count 3.62 M/mcL (3.82-4.97); Red Cell Distribution Width 15.9 % (11.5-14.5); Segmented Neutrophils % 76.3 %
[2022-09-02 05:14] LABS: Hemoglobin 10.6 g/dL (11.5-15.4); White Blood Count 8.7 K/mcL (4.3-11.1)
[2022-09-02 05:23] LABS: Calcium 7.8 mg/dL (8.6-10.3); Magnesium 1.7 mg/dL (1.6-2.6); Phosphorous 3.3 mg/dL (2.7-4.5); Potassium 3.3 mEq/L (3.5-5.1)
[2022-09-02] MEDS ORDERED: methocarbamoL 750 MG TABLET PO PRN (06:40)
[2022-09-02] MEDS: Insulin LISPRO 300 UNITS/3 ML VIAL SUBQ SCH ×3 (08:08→16:53)
[2022-09-02] MEDS ORDERED: NON-FORMULARY MEDICATION 1 EACH EACH (Amlodipine Besylate 10 MG Tablet) PO SCH (09:00)
[2022-09-02] MEDS: 0.9 % Sodium Chloride 1,000 ML IVC SCH (09:12)
[2022-09-02] MEDS: ALPRAZolam 1 MG TABLET PO PRN (09:24)
[2022-09-02] MEDS: Fenofibrate 54 MG TABLET PO SCH (09:25)
[2022-09-02] MEDS: BuPROPion XL (24 HR) 150 MG TABLET PO SCH (09:25)
[2022-09-02] MEDS: hydroCHLOROthiazide 25 MG TABLET PO SCH (09:26)
[2022-09-02] MEDS: Gabapentin 300 MG CAPSULE PO SCH ×3 (09:26→22:43)
[2022-09-02] MEDS: Lurasidone 20 MG TABLET PO SCH (09:26)
[2022-09-02] MEDS: *HR* Metformin 500 MG TABLET PO SCH (09:26)
[2022-09-02] MEDS: Loratadine 10 MG TABLET PO SCH (09:26)
[2022-09-02] MEDS: Topiramate 25 MG TABLET PO SCH ×2 (09:26→22:44)
[2022-09-02] MEDS: Venlafaxine XR (24 HR) 75 MG CAP.ER.24H PO SCH (09:26)
[2022-09-02] MEDS: Pantoprazole 40 MG VIAL IVP SCH (09:28)
[2022-09-02] MEDS: methocarbamoL 750 MG TABLET PO SCH ×3 (09:42→23:15)
[2022-09-02] MEDS: amLODIPine 5 MG TABLET PO SCH (09:47)
[2022-09-02] MEDS: Ipratropium/Albuterol Neb 3 ML IH SCH ×2 (15:42→22:52)
[2022-09-02] MEDS: *HR* Heparin 5,000 UNIT/ML VIAL SQ SCH (18:42)
[2022-09-03] MEDS: Ipratropium/Albuterol Neb 3 ML IH SCH ×4 (04:04→21:49)
[2022-09-03] MEDS: *HR* Heparin 5,000 UNIT/ML VIAL SQ SCH ×2 (06:15→18:01)
[2022-09-03] MEDS: Ketorolac 30 MG/ML VIAL IVP SCH (06:15)
[2022-09-03] MEDS: Acetaminophen IV 1,000 MG/100 ML BAG IVPB SCH ×3 (06:16→18:10)
[2022-09-03 06:54] LABS: Basophils % 0.1 %; Eosinophils # 0.1 K/mcL (0.0-0.6); Eosinophils % 1.1 %; Hematocrit 28.9 % (35.3-44.9); Immature Granulocytes % 0.3 % (0-4); Lymphocytes # 1.2 K/mcL (0.6-4.6); Lymphocytes % 14.8 %; Mean Corpuscular HGB Conc 31.1 g/dL (31.6-35.5); Mean Corpuscular Hemoglobin 29.6 pg (28.0-33.3); Mean Corpuscular Volume 95.1 fL (83.0-100.0); Mean Platelet Volume 10.2 fL (9.4-12.4); Monocytes # 0.3 K/mcL (0.0-1.3); Monocytes % 3.7 %; Neutrophils # 6.3 K/mcL (1.6-8.9); Platelet Count 239 K/mcL (140-400); Red Blood Count 3.04 M/mcL (3.82-4.97); Red Cell Distribution Width 15.6 % (11.5-14.5); White Blood Count 7.9 K/mcL (4.3-11.1)
[2022-09-03 07:24] LABS: Calcium 8.1 mg/dL (8.6-10.3); Magnesium 1.8 mg/dL (1.6-2.6); Phosphorous 2.6 mg/dL (2.7-4.5); Potassium 3.3 mEq/L (3.5-5.1)
[2022-09-03] MEDS: Insulin LISPRO 300 UNITS/3 ML VIAL SUBQ SCH ×3 (11:16→18:00)
[2022-09-03] MEDS: CeFAZolin 2 GM/120 ML BAG IVPB SCH ×2 (11:18→19:17)
[2022-09-03] MEDS: Loratadine 10 MG TABLET PO SCH (11:19)
[2022-09-03] MEDS: BuPROPion XL (24 HR) 150 MG TABLET PO SCH (11:19)
[2022-09-03] MEDS: Topiramate 25 MG TABLET PO SCH ×2 (11:19→21:40)
[2022-09-03] MEDS: Fenofibrate 54 MG TABLET PO SCH (11:19)
[2022-09-03] MEDS: *HR* Metformin 500 MG TABLET PO SCH (11:19)
[2022-09-03] MEDS: Gabapentin 300 MG CAPSULE PO SCH ×3 (11:20→21:41)
[2022-09-03] MEDS: amLODIPine 5 MG TABLET PO SCH (11:20)
[2022-09-03] MEDS: hydroCHLOROthiazide 25 MG TABLET PO SCH (11:20)
[2022-09-03] MEDS: Lurasidone 20 MG TABLET PO SCH (11:20)
[2022-09-03] MEDS: Pantoprazole 40 MG VIAL IVP SCH (11:24)
[2022-09-03] MEDS: Venlafaxine XR (24 HR) 75 MG CAP.ER.24H PO SCH (11:24)
[2022-09-03] MEDS: methocarbamoL 750 MG TABLET PO SCH ×2 (11:29→18:01)
[2022-09-03] MEDS: 0.9 % Sodium Chloride 1,000 ML IVC SCH ×2 (14:08→21:41)
[2022-09-03] MEDS: ALPRAZolam 1 MG TABLET PO PRN (21:41)
[2022-09-04] MEDS: methocarbamoL 750 MG TABLET PO SCH ×4 (00:32→23:52)
[2022-09-04] MEDS: CeFAZolin 2 GM/120 ML BAG IVPB SCH ×3 (00:32→15:11)
[2022-09-04] MEDS: Acetaminophen IV 1,000 MG/100 ML BAG IVPB SCH ×2 (00:33→07:28)
[2022-09-04] MEDS: Ipratropium/Albuterol Neb 3 ML IH SCH ×3 (04:29→15:43)
[2022-09-04] MEDS: *HR* Heparin 5,000 UNIT/ML VIAL SQ SCH ×2 (07:28→17:54)
[2022-09-04] MEDS: Insulin LISPRO 300 UNITS/3 ML VIAL SUBQ SCH ×3 (08:38→17:14)
[2022-09-04] MEDS: Fenofibrate 54 MG TABLET PO SCH (08:39)
[2022-09-04] MEDS: BuPROPion XL (24 HR) 150 MG TABLET PO SCH (08:39)
[2022-09-04] MEDS: Loratadine 10 MG TABLET PO SCH (08:39)
[2022-09-04] MEDS: Lurasidone 20 MG TABLET PO SCH (08:39)
[2022-09-04] MEDS: Gabapentin 300 MG CAPSULE PO SCH ×3 (08:40→22:14)
[2022-09-04] MEDS: amLODIPine 5 MG TABLET PO SCH (08:40)
[2022-09-04] MEDS: *HR* Metformin 500 MG TABLET PO SCH (08:41)
[2022-09-04] MEDS: Pantoprazole 40 MG VIAL IVP SCH (08:41)
[2022-09-04] MEDS: Topiramate 25 MG TABLET PO SCH ×2 (08:41→22:13)
[2022-09-04] MEDS: Venlafaxine XR (24 HR) 75 MG CAP.ER.24H PO SCH (08:41)
[2022-09-04] MEDS: hydroCHLOROthiazide 25 MG TABLET PO SCH (08:41)
[2022-09-04] MEDS ORDERED: Acetaminophen 325 MG TABLET PO SCH (12:00)
[2022-09-04 14:24] LABS: Calcium 9.3 mg/dL (8.6-10.3); Potassium 3.3 mEq/L (3.5-5.1)
[2022-09-04 15:28] LABS: Basophils % 0.3 %; Eosinophils # 0.1 K/mcL (0.0-0.6); Eosinophils % 1.3 %; Hematocrit 28.3 % (35.3-44.9); Hemoglobin 8.7 g/dL (11.5-15.4); Immature Granulocytes % 0.8 % (0-4); Lymphocytes # 1.3 K/mcL (0.6-4.6); Lymphocytes % 20.3 %; Mean Corpuscular HGB Conc 30.7 g/dL (31.6-35.5); Mean Corpuscular Hemoglobin 29.6 pg (28.0-33.3); Mean Corpuscular Volume 96.3 fL (83.0-100.0); Mean Platelet Volume 10.8 fL (9.4-12.4); Monocytes # 0.4 K/mcL (0.0-1.3); Monocytes % 5.6 %; Neutrophils # 4.5 K/mcL (1.6-8.9); Platelet Count 310 K/mcL (140-400); Red Blood Count 2.94 M/mcL (3.82-4.97); Red Cell Distribution Width 15.8 % (11.5-14.5); Segmented Neutrophils % 71.7 %; White Blood Count 6.2 K/mcL (4.3-11.1)
[2022-09-04] MEDS ORDERED: *HR* OxyCODONE/APAP 5/325 TABLET PO PRN (17:52)
[2022-09-04] MEDS: polyethylene glycoL 3350 17 GM POWD.PACK PO SCH (18:42)
[2022-09-04] MEDS: ALPRAZolam 1 MG TABLET PO PRN (22:14)
[2022-09-04] MEDS: *HR* OxyCODONE/APAP 10/325 TABLET PO PRN (22:14)
[2022-09-05 05:16] LABS: Basophils % 0.5 %; Eosinophils # 0.1 K/mcL (0.0-0.6); Eosinophils % 1.8 %; Hematocrit 28.5 % (35.3-44.9); Hemoglobin 8.8 g/dL (11.5-15.4); Lymphocytes % 17.3 %; Mean Corpuscular HGB Conc 30.9 g/dL (31.6-35.5); Mean Corpuscular Hemoglobin 28.8 pg (28.0-33.3); Mean Corpuscular Volume 93.1 fL (83.0-100.0); Mean Platelet Volume 10.5 fL (9.4-12.4); Monocytes # 0.4 K/mcL (0.0-1.3); Monocytes % 7.3 %; Neutrophils # 4.3 K/mcL (1.6-8.9); Platelet Count 348 K/mcL (140-400); Red Blood Count 3.06 M/mcL (3.82-4.97); Red Cell Distribution Width 15.7 % (11.5-14.5); Segmented Neutrophils % 72.1 %
[2022-09-05 05:42] LABS: Calcium 9.3 mg/dL (8.6-10.3); Potassium 3.4 mEq/L (3.5-5.1)
[2022-09-05] MEDS: *HR* Heparin 5,000 UNIT/ML VIAL SQ SCH ×2 (05:58→17:35)
[2022-09-05] MEDS: *HR* OxyCODONE/APAP 10/325 TABLET PO PRN (05:58)
[2022-09-05] MEDS: Insulin LISPRO 300 UNITS/3 ML VIAL SUBQ SCH ×3 (08:04→17:35)
[2022-09-05] MEDS: Topiramate 25 MG TABLET PO SCH (08:24)
[2022-09-05] MEDS: BuPROPion XL (24 HR) 150 MG TABLET PO SCH (08:24)
[2022-09-05] MEDS: Fenofibrate 54 MG TABLET PO SCH (08:25)
[2022-09-05] MEDS: Gabapentin 300 MG CAPSULE PO SCH ×2 (08:25→16:27)
[2022-09-05] MEDS: polyethylene glycoL 3350 17 GM POWD.PACK PO SCH (08:25)
[2022-09-05] MEDS: hydroCHLOROthiazide 25 MG TABLET PO SCH (08:25)
[2022-09-05] MEDS: Pantoprazole 40 MG VIAL IVP SCH (08:26)
[2022-09-05] MEDS: Venlafaxine XR (24 HR) 75 MG CAP.ER.24H PO SCH (08:26)
[2022-09-05] MEDS: Loratadine 10 MG TABLET PO SCH (08:26)
[2022-09-05] MEDS: Lurasidone 20 MG TABLET PO SCH (08:26)
[2022-09-05] MEDS: *HR* Metformin 500 MG TABLET PO SCH (08:26)
[2022-09-05] MEDS: methocarbamoL 750 MG TABLET PO SCH ×2 (08:26→16:27)
[2022-09-05] MEDS: amLODIPine 5 MG TABLET PO SCH (08:26)
[2022-09-05 08:37] LABS: Bilirubin,Urine Negative (Negative); Blood,Urine Negative (Negative); Clarity,Urine Clear (Clear); Color,Urine Colorless (Yellow); Glucose,Urine (UA) Normal (Normal); Ketones,Urine Negative (Negative); Leukocyte Esterase,Urine Negative (Negative); Nitrite,Urine Negative (Negative); Protein,Urine Negative (Neg-Trace); Specific Gravity,Urine 1.005 (1.010-1.025); Urobilinogen,Urine Normal (Normal)
[2022-09-05 13:14] LABS: Adenovirus Not Detected (Not Detect); Bordetella Pertussis Not Detected (Not Detect); Chlamydophila pneumoniae Not Detected (Not Detect); Coronavirus 229E Not Detected (Not Detect); Coronavirus HKU1 Not Detected (Not Detect); Coronavirus NL63 Not Detected (Not Detect); Coronavirus OC43 Not Detected (Not Detect); Human Metapneumovirus Not Detected (Not Detect); Human Rhinovirus/Enterovirus Not Detected (Not Detect); Influenza A Subtype 2009 H1 Not Detected (Not Detect); Influenza B Not Detected (Not Detect); Mycoplasma pneumoniae Not Detected (Not Detect); Parainfluenza Virus 1 Not Detected (Not Detect); Parainfluenza Virus 2 Not Detected (Not Detect); Parainfluenza Virus 3 Not Detected (Not Detect); Parainfluenza Virus 4 Not Detected (Not Detect); Respiratory Syncytial Virus Not Detected (Not Detect); SARS-CoV-2 Not Detected (Not Detect)
[2022-09-05 16:40] VITALS: BP 116/52; PULSE 78; TEMP 98; O2SAT 93
== END 2022-09-05 18:32 | DRG 354 ==
LOC: SAMDAY 09:38 → 3ANU 21:19
PROVIDERS: ADMIT Surgery; ATTEND Surgery